=== PATIENT | female | born 1980 | race Caucasian/White ===

== ENCOUNTER → 2024-03-26 14:18 | Outpatient (REF) | payer OTHER, SELFPAY ==
[2024-03-26 15:32] LABS: Hematocrit 39.4 % (37.0-47.0); Mean Corp Hgb Conc. 35.5 g/dL (33.0-37.0); Mean Corpuscular Hgb 32.9 pg (27.0-31.0); Mean Corpuscular Volume 92.5 fL (81.0-99.0); Mean Platelet Volume 10.8 fL (7.4-10.4); Platelet Count 304 10^3/uL (130-400); Red Blood Cell Count 4.26 10^6/uL (4.20-5.40); Red Cell Dist. Width 12.5 % (11.5-14.5); White Blood Cell Count 11.3 10^3/uL (4.8-10.8)
[2024-03-26 15:52] LABS: Albumin 4.7 g/dl (3.5-5.0); Blood Urea Nitrogen 13 mg/dl (7-17); Carbon Dioxide 25 mmol/L (22-30); Total Bilirubin 0.3 mg/dl (0.2-1.3); Total Protein 7.1 g/dl (6.3-8.2); eGFR > 60.00
[2024-03-26 16:01] LABS: ALT (SGPT) 14 U/L (0-35); AST (SGOT) 22 U/L (14-36); Alkaline Phosphatase 59 U/L (38-126); Calcium 9.8 mg/dl (8.4-10.2); Chloride 105 mmol/L (98-107); Glucose 88 mg/dl (70-99); Potassium 4.9 mmol/L (3.5-5.1); Sodium 139 mmol/L (135-145)
[2024-03-26 16:08] LABS: Free T4 0.94 ng/dl (0.78-2.19)
[2024-03-26 16:23] LABS: TSH 0.54 uIU/ml (0.47-4.68)
== END ==
LOC: REG 14:18
PROVIDERS: ATTENDING PHYSICIAN Nurse Practitioner Adult Health
DX: F32.2 Major depressive disorder, single episode, severe without psychotic features (principal); Z00.00 Encounter for general adult medical examination without abnormal findings
CPT/HCPCS: 80053; 84439; 84443; 85027